=== PATIENT | male | born 1995 | race American Indian/Alaskan Native ===

== ENCOUNTER 2018-03-17 22:46 | Emergency (ER) | payer BC ==
[2018-03-17 23:24] VITALS: BP 125/72; PULSE 86; RESP 18; TEMP 98; O2SAT 100
--- NOTE | 2018-03-17 23:34 | ED PDOC ---
HPI: Wound Care - HPI Time Seen by Provider: 03/17/18 23:25 Chief Complaint (Nursing): Abnormal Skin Integrity Chief Complaint (Provider): finger laceration History Per: Patient Additional Complaint(s): 22 y/o right hand dominant male presents with laceration to right 5th digit sustained when he accidentally cut finger with a knife. No active bleeding noted upon arrival. Patient denies any acute pain, numbness or tingling. PMD: none Past Medical History Reviewed: Historical Data, Nursing Documentation, Vital Signs Vital Signs: Last Vital Signs Temp 98 F 03/17/18 23:21 Pulse 86 03/17/18 23:21 Resp 18 03/17/18 23:21 BP 125/72 03/17/18 23:21 Pulse Ox 100 03/17/18 23:21 - Medical History PMH: Anxiety, Asthma - Family History Family History: States: No Known Family Hx - Living Arrangements Living Arrangements: With Family - Social History Current smoker - smoking cessation education provided: No Alcohol: None Drugs: Denies - Immunization History Hx Tetanus Toxoid Vaccination: Yes - Home Medications Home Medications: Ambulatory Orders Medication Instructions Recorded Cephalexin [Keflex] 500 mg PO BID #14 cap 08/19/14 Azithromycin [Zithromax Z-Faustino] 250 mg PO DAILY #1 packet 07/02/15 Ofloxacin [Ocuflox 5 ml] 1 drop OP Q4 #1 vial 07/02/15 Naproxen [Naprosyn] 500 mg PO BID PRN #15 tablet 04/20/16 - Allergies Allergies/Adverse Reactions: Allergies Allergy/AdvReac Type Severity Reaction Status Date / Time No Known Allergies Allergy Verified 03/17/18 23:20 Review of Systems ROS Statement: Except As Marked, All Systems Reviewed And Found Negative Skin: Positive for: Other (laceration to right 5th digit) Physical Exam - Reviewed Nursing Documentation Reviewed: Yes Vital Signs Reviewed: Yes - Physical Exam Appears: Positive for: Well, Non-toxic, No Acute Distress Skin: Positive for: Normal Color, Warm. Negative for: Rash Eye Exam: Positive for: Normal appearance Cardiovascular/Chest: Positive for: Regular Rate, Rhythm Respiratory: Positive for: Normal Breath Sounds. Negative for: Wheezing, Respiratory Distress Extremity: Positive for: Other (1 cm superficial laceration noted to ulnar aspect of right 5th digit, no active bleeding, N/V intact, full rom of affected digit) Neurologic/Psych: Positive for: Alert, Oriented - ECG O2 Sat by Pulse Oximetry: 100 Pulse Ox Interpretation: Normal Procedure: Wound Repair - Time Performed Time Performed: 23:45 - Time Out Time Out: Side verified, Site verified, Patient ID confirmed - Procedure Procedure: Wound Repair: right 5th digit laceration - Consent Obtained Consent obtained: Verbal - Performed by Performed by: Mid-level Provider - Indications Indication(s):: Laceration - Location Location:: Right Finger:: Little Shape:: Linear - Debris Debris:: None - Complexity Complexity:: Simple (one layer) - Wound repair method [place]:: Tissue glue (dermabond) - Muscle repiar layer closed with Muscle repair layer closed with:: Wound well approximated, Dressing applied, Tetanus up to date - Complications Complications: none - Patient tolerated procedure Patient Tolerated Procedure:: Well Medical Decision Making Medical Decision Makin22 year old with right 5th digit laceration Plan: Glue repair Pain meds declined See procedure note. Patient was given wound care instructions. Disposition - Clinical Impression Clinical Impression: Finger laceration - Patient ED Disposition Is Patient to be Admitted: No Counseled Patient/Family Regarding: Need For Followup - Disposition Referrals: [facility] [Outside] Disposition: Routine/Home Disposition Time: 23:37 Condition: STABLE Additional Instructions: Keep wound clean and dry. Allow excess glue to flake off on its own. Tylenol or Advil as needed for pain. Follow-up with clinic or primary doctor. Instructions: Laceration Repair With Glue (DC) Forms: [employer] ([employer])
== END 2018-03-17 23:43 | disposition home or self-care (01) ==
LOC: H.ER 22:46
DX: S61.216A Laceration without foreign body of right little finger without damage to nail, initial encounter (principal); W26.0XXA Contact with knife, initial encounter; Y92.89 Other specified places as the place of occurrence of the external cause